=== PATIENT | male | born 1940 | race Caucasian/White ===

== ENCOUNTER 2018-06-20 08:16 | Day surgery (SDC) | payer MEDICARE ==
[2018-06-20 09:12] VITALS: BMI 27.1
[2018-06-20] MEDS ORDERED: Lactated Ringer's 500 ML IV ONE (09:13)
[2018-06-20 09:29] VITALS: O2SAT 99
[2018-06-20] MEDS ORDERED: Propofol 10 mg/ml Inj (20 ML) ONE (10:25)
[2018-06-20 10:45] VITALS: TEMP 97
[2018-06-20 11:12] VITALS: BP 106/60; PULSE 57; RESP 14
== END 2018-06-20 12:15 | disposition home or self-care (01) ==
LOC: H.ENDO 08:16
PROVIDERS: ATTEND Internal Medicine Gastroenterology
DX: Z12.11 Encounter for screening for malignant neoplasm of colon (principal); K64.8 Other hemorrhoids
CPT/HCPCS: 45378; J2001; J2704; J7120